=== PATIENT | male | born 1930 | race Caucasian/White ===

== ENCOUNTER → 2018-09-08 | Outpatient (CLI) | payer OTHER ==
[~2018-09-08] MED LIST: ALLOPURINOL 30300 M2 PO; ALLOPURINOL 30300 M3 PO; AMLODIPINE BESYL5 M1 PO; APAP650 PO; ASPIRIN325 PO; COZAAR 50 MG TA50 M2 PO; FISH OIL 1,001000 M2 PO; GLUCOSAMINE CH PO; GLUCOSAMINE HC500 MG PO; HYALURONIC ACI1 EACH PO; HYDROCHLOROTHIA25 M2 PO; MULTIVITAMINS PO; OMEGA-31000 MG PO; RED YEAST RICE600 M1 PO; TENORMIN25 MG PO; THERA-M CAPLET1 EACH PO; TRIAMTERENE-HC1 EAC1 PO; TRIAMTERENE-HC1 EAC2 PO; VITAMIN D35000 UNIT PO
== END ==
LOC: MRI 15:38
DX: S46.812A Strain of other muscles, fascia and tendons at shoulder and upper arm level, left arm, initial encounter (principal); M19.012 Primary osteoarthritis, left shoulder; X58.XXXA Exposure to other specified factors, initial encounter; Y93.89 Activity, other specified; Y92.89 Other specified places as the place of occurrence of the external cause; Y99.8 Other external cause status

== ENCOUNTER → 2019-05-30 | Outpatient (CLI) | payer OTHER ==
[2019-05-30 14:40] LABS: CREATININE 1.4 mg/dL (0.7-1.3)
== END ==
LOC: CAT 11:45 → LABMALL 13:48
PROVIDERS: Urology
DX: K76.0 Fatty (change of) liver, not elsewhere classified (principal); C61 Malignant neoplasm of prostate; M47.819 Spondylosis without myelopathy or radiculopathy, site unspecified; Z85.51 Personal history of malignant neoplasm of bladder; M41.80 Other forms of scoliosis, site unspecified

== ENCOUNTER → 2019-10-20 | Outpatient (CLI) | payer OTHER | LOC: LAB 08:27 → EDSTATUS 11:54 | PROVIDERS: ATTEND Anesthesiology | DX: Z01.812 Encounter for preprocedural laboratory examination (principal) ==

== ENCOUNTER → 2019-11-17 | Outpatient (CLI) | payer OTHER | LOC: LAB 11:00 | PROVIDERS: ATTEND Anesthesiology | DX: Z01.812 Encounter for preprocedural laboratory examination (principal); Z11.59 Encounter for screening for other viral diseases ==

== ENCOUNTER → 2020-01-15 | Outpatient (CLI) | payer OTHER | LOC: SJCVC 11:28 | PROVIDERS: ATTEND Internal Medicine Cardiovascular Disease | DX: I35.0 Nonrheumatic aortic (valve) stenosis (principal); R01.1 Cardiac murmur, unspecified; E78.00 Pure hypercholesterolemia, unspecified; I10 Essential (primary) hypertension; G45.9 Transient cerebral ischemic attack, unspecified; Z79.899 Other long term (current) drug therapy ==

== ENCOUNTER → 2020-03-20 | Outpatient (CLI) | payer OTHER | LOC: RAD 09:03 | PROVIDERS: ATTEND Family Medicine | DX: M25.461 Effusion, right knee (principal); M25.462 Effusion, left knee; M25.762 Osteophyte, left knee; M22.41 Chondromalacia patellae, right knee ==

== ENCOUNTER → 2020-03-27 | Outpatient (CLI) | payer OTHER | LOC: SJCVCIMAG 13:49 | PROVIDERS: ATTEND Internal Medicine Cardiovascular Disease | DX: I08.3 Combined rheumatic disorders of mitral, aortic and tricuspid valves (principal); I11.9 Hypertensive heart disease without heart failure; R01.1 Cardiac murmur, unspecified; E78.00 Pure hypercholesterolemia, unspecified; I65.23 Occlusion and stenosis of bilateral carotid arteries; Z79.899 Other long term (current) drug therapy ==

== ENCOUNTER 2021-02-26 10:10 | Inpatient (IN) | payer OTHER ==
[~2021-02-26] VITALS: Ht 175.3 cm; Wt 77.1 kg
[2021-02-26 10:10] VITALS: BP 149/78
--- NOTE | 2021-02-26 10:35 | EKG ---
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1930 Requested By: Natalie Leos Order Number: [id number] MD: Kumar Carrera Measurements Intervals [place] Rate: 132 P: 264 IN: 112 QRS: 9 QRSD: 89 T: 22 QT: 368 QTc: 546 Interpretive Statements Ectopic atrial tachycardia, unifocal Borderline T abnormalities, inferior leads Prolonged QT interval Compared to ECG 09/10/2014 16:32:15 T-wave abnormality now present Prolonged QT interval now present Sinus rhythm no longer present Electronically Signed On 02-26-2021 10:35:22 CDT by Kumar Carrera [email or web address] <ELECTRONICALLY SIGNED> By: Kumar Carrera MD, [facility] 02/26/21 1035 1015 1015 Kumar Carrera MD, FACC /EPI
[2021-02-26 10:46] LABS: ABSOLUTE NEUTROPHILS 4.6 thou/uL (1.4-8.2); BASOPHILS 0.7 % (0.0-2.0); EOSINOPHILS 0.9 % (0.0-3.0); HEMATOCRIT 33.5 % (42.0-52.0); HEMOGLOBIN 11.3 gm/dL (14.0-18.0); MCH 33.7 pg (26.0-34.0); MCHC 33.8 g/dL (28.0-37.0); MCV 99.7 fL (80.0-100.0); MONOCYTES 16.8 % (1.0-8.0); PLATELET COUNT 200 thou/uL (150-400); POLYS 64.6 % (36.0-66.0); RBC 3.36 mil/uL (4.50-6.00); RDW 13.7 % (10.5-14.5)
[2021-02-26 11:12] LABS: CALCIUM 8.9 mg/dL (8.5-10.1); POTASSIUM 4.2 mmol/L (3.5-5.1)
[2021-02-26 11:41] VITALS: BP 138/84
[2021-02-26 12:00] VITALS: BP 138/84
[2021-02-26 12:55] VITALS: BP 150/78
--- NOTE | 2021-02-26 13:39 | EKG ---
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1930 Requested By: Carlos Hogan Order Number: [id number] : Kumar Carrera Measurements Intervals [place] Rate: 130 P: 94 [place]: 78 QRS: -12 QRSD: 89 T: 35 QT: 375 QTc: 552 Interpretive Statements Sinus tachycardia Atrial premature complex Prolonged QT interval Compared to ECG 02/26/2021 10:15:53 Atrial premature complex(es) now present T-wave abnormality no longer present Electronically Signed On 02-26-2021 13:39:31 CDT by Kumar Carrera [email or web address] <ELECTRONICALLY SIGNED> By: Kumar Carrera MD, [facility] 02/26/21 1339 1027 1027 Kumar Carrera MD, [facility] /EPI
--- NOTE | 2021-02-26 14:08 | 2DMMODE ---
[facility] [place] [address] 2 D/M-MODE ECHOCARDIOGRAM Name: BLANK RUST FRANDY Room #: 217-P ADM IN M.R.#: [id number] Admission: 02/26/21 Attend Phys: Carlos Hogan MD Discharge: Date of : 34 Report #: [id number] THIS REPORT FOR: cc: FAM - Family physician unknown FAM - Family physician unknown Acosta Nassar MD [facility] ~ APPROVED REPORT Study performed: 02/26/2021 13:12:30 EXAM: Comprehensive 2D, Doppler, and color-flow Echocardiogram Patient Location: Bedside Room #: 217 Status: routine BSA: 1.93 HR: 63 bpm BP: 134/84 mmHg Rhythm: NSR Other Information Study Quality: Adequate Indications Afib, aortic stenosis. 2D Dimensions RVDd: 29.41 mm IVSd: 12.94 (7-11mm) LVOT Diam: 23.08 (18-24mm) LVDd: 43.86 mm PWd: 12.79 (7-11mm) Ascending Ao: 28.49 (22-36mm) LVDs: 33.17 (25-40mm) Left Atrium: 40.07 (27-40mm) Aortic Root: 40.42 mm Volumes Left Atrial Volume (Systole) Single Plane 4CH: 63.91 mL Single Plane 2CH: 95.72 mL LA ESV Index: 42.00 mL/m2 Aortic Valve AoV Peak Myron.: 2.92 m/s AO Peak Gr.: 34.21 mmHg LVOT Max P.61 mmHg AO Mean Gr.: 18.82 mmHg AO V2 Mean: 2.07 m/s LVOT Max V: 0.81 m/s [facility] [address] [place] [address] 2 D/M-MODE ECHOCARDIOGRAM Name: YOCASTABLANK FRANDY Room #: 217-[facility] IN [facility]#: [id number] Admission: 02/26/21 Attend Phys: Carlos Hogan MD Discharge: Date of : 32 Report #: [id number] AO V2 VTI: 77.45 cm MUKESH Vmax: 1.15 cm2 Mitral Valve E/A Ratio: 0.6 MV Decel. Time: 255.50 ms MV E Max Myron.: 0.99 m/s MV A Myron.: 1.57 m/s MV PHT: 74.09 ms IVRT: 92.27 ms Pulmonary Valve PV Peak Myron.: 0.90 m/s PV Peak Gr.: 3.21 mmHg Pulmonary Vein P Vein S: 0.43 m/s P Vein A: 0.31 m/s P Vein D: 0.18 m/s P Vein A Dur.: 152.2 msec P Vein S/D Ratio: 2.39 Tricuspid Valve TR Peak Myron.: 1.94 m/s RAP Estimate: 5.00 mmHg TR Peak Gr.: 15.05 mmHg PA Pressure: 20.00 mmHg Left Ventricle The left ventricle is normal size. There is normal LV segmental wall motion. Mild concentric left ventricular hypertrophy. Left ventricular systolic function is normal. LVEF is 50-55%. Mild diastolic dysfunction Right Ventricle The right ventricle is normal size. The right ventricular systolic function is normal. Atria Left atrium is moderately dilated. The right atrium size is normal. Aortic Valve Aortic valve is heavily calcified. Moderate stenosis, mild insufficiency Mild aortic regurgitation. Calculated aortic valve area is 1.2 cm2 (Peak gradient of 34 mmHg, mean pressure gradient of 19 mmHg). Mitral Valve Moderate mitral annular calcification. Mild mitral regurgitation. [facility] [address] [place] [address] 2 D/M-MODE ECHOCARDIOGRAM Name: RUSTBLANK [place] Room #: 217-[facility] IN ..#: [id number] Admission: 02/26/21 Attend Phys: Carlos Hogan MD Discharge: Date of : 34 Report #: [id number] evidence of mitral valve stenosis. Tricuspid Valve The tricuspid valve is normal in structure. Trace tricuspid regurgitation. Estimated PAP is 20mmHg. Pulmonic Valve The pulmonary valve is normal in structure. Trace pulmonic regurgitation. Great Vessels The aortic root is normal in size. The ascending aorta is normal in size. IVC is normal in size and collapses >50% with inspiration. Pericardium There is no pericardial effusion. <Conclusion> Left ventricular systolic function is normal. There is normal LV segmental wall motion. LVEF is 50-55%. Mild diastolic dysfunction Left atrium is moderately dilated. Aortic valve is heavily calcified. Moderate stenosis, mild insufficiency Calculated aortic valve area is 1.2 cm2 (Peak gradient of 34 mmHg, mean pressure gradient of 19 mmHg). Moderate mitral annular calcification. Mild mitral regurgitation. Trace tricuspid regurgitation. Estimated pulmonary artery pressure of 20mmHg. There is no pericardial effusion. <ELECTRONICALLY SIGNED> By: Acosta Nassar MD, FACC 02/26/21 140 140 06 Acosta Nassar MD, FACC /INF
[2021-02-26 19:35] VITALS: BP 134/66
--- NOTE | 2021-02-27 03:05 | NUR ---
PT IS ALERT AND OREINTED X4. LUNGS ARE CLEAR. COMPLAINS OF WEAKNESS BEDREST. VOIDS PER URINAL CLEAR YELLOW NOTED. BOWEL SOUNDS HYPOACTIVE ABDOMEN IS SOFT. WAS AT BEDSIDE AND FAMILY PICKED HER UP EARLIER. DENIES ANY CHEST PAIN OR PAIN IN GENERAL WHEN ASKED. CALL LIGHT WITHIN REACH IF NEEDS ASSISTANCE PER NURSING
[2021-02-27 04:43] VITALS: BP 138/90
[2021-02-27 05:18] LABS: HEMATOCRIT 30.8 % (42.0-52.0); HEMOGLOBIN 10.6 gm/dL (14.0-18.0); MCH 34.4 pg (26.0-34.0); MCHC 34.4 g/dL (28.0-37.0); RBC 3.08 mil/uL (4.50-6.00); WBC 6.5 thou/uL (4.0-11.0)
[2021-02-27 06:14] LABS: CALCIUM 8.6 mg/dL (8.5-10.1); POTASSIUM 4.2 mmol/L (3.5-5.1)
--- NOTE | 2021-02-27 07:18 | EKG ---
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1930 Requested By: Elizabeth Daly Order Number: [id number] MD: Kumar Carrera Measurements Intervals [place] Rate: 58 P: 62 ND: 181 QRS: 11 QRSD: 90 T: 39 QT: 487 QTc: 479 Interpretive Statements Sinus rhythm Borderline prolonged QT interval Compared to ECG 02/26/2021 10:27:47 Sinus tachycardia no longer present Atrial premature complex(es) no longer present Electronically Signed On 02-27-2021 7:18:00 CDT by Kumar Carrera [email or web address] <ELECTRONICALLY SIGNED> By: Kumar Carrera MD, [facility] 02/27/21717 9 9 Kumar Carrera MD, [facility] /EPI
[2021-02-27 07:23] VITALS: BP 133/60
[2021-02-27] MEDS ORDERED: XARELTO15 MG PO (08:28)
[2021-02-27] MEDS ORDERED: PACERONE 200 M200 M1 PO (08:28)
--- NOTE | 2021-02-27 11:03 | NUR ---
Assumed care of pt this AM. Pt is A&O x4, upset that was sent home this morning. Denies any chest pain. SA 50s-70s on the monitor after d/c'ing amiodarone gtt per cardio this AM. Pt accidentally d/c'ed IV. Pt anxious to get home today & keeps asking everyone when he will be leaving so he can get back home to . PT/OT consulted. Informed CM about situation w/ . Will continue to monitor pt needs.
[2021-02-27 11:35] VITALS: BP 120/48
[2021-02-27 13:08] VITALS: BP 120/48
--- NOTE | 2021-02-27 14:42 | NUR ---
ASSESSMENT: CM REVIEWED CHART AND SPOKE WITH PATIENT AT THE BEDSIDE. PT WAS ADMITTED WITH A FIB RVR. 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 PT REPORTS THAT THEY LIVE IN A HOUSE WITH 2 STEPS WITH A HANDRAIL TO ENTER AND NO STEPS HE HAS TO USE ONCE INSIDE. PT REPORTS THAT BOTH HE AND HIS USE A WALKER. PT REPORTS THAT HE STILL DRIVES AND GOES [employer]. PT REPORTS THAT HE IS INDEPENDENT WITH ADLS. IT WAS REPORTED BY BEDSIDE RN SOME CONCERNS ABOUT HOME ENVIRONMENT WAS HERE VISITING PT AND NEEDING QUITE A BIT ASSISTANCE. CM MET WITH PATIENT AND DISCUSSED HOME HEALTH AND THAT HOME HEALTH COULD BE ARRANGED FOR HIM WELL IF THEY CALL [facility] PCP IT COULD BE ARRANGED FOR HER. PT REPORTS THEY DO JUST FINE ON THEIR OWN. CM DISCUSSED THE BENEFITS OF HH AND HIGHLY ENCOURAGED WELL PT/OT EVALS BUT PT CONTINUES TO DECLINE. CM NOTIFIED ATTENDING. CM ALSO REACHED OUT TO PTS EX SON IN [place] [phone] WHO STATES HIS EX IS THE ONLY CHILD THEY HAVE THAT LIVES IN [place]OWN BUT THEY HAVE AN ESTRANGED RELATIONSHIP AND SHE DOES NOT TALK TO PATIENT OR HER MOTHER. SUMA REPORTS PT HAS TWO OTHER CHILDREN BOTH WHO LIVE OUT OF STATE AND HE IS THE CLOSEST TO FAMILY THE PATIENT HAS TO HELP THEM IF NEEDED. HE REPORTS HE CAN ASSIST WITH CHANGING LIGHT BULBS AND THINGS AROUND THE HOUSE BUT PT DRIVES HIMSELF TO THE STORE. HE STATES HE HAS ENCOURAGED THEM MULTIPLE TIMES TO MOVE SOMEWHERE WHERE THEY HAVE MORE HELP BUT HE REPORTS THEY WANT TO STAY HOME. PT APPEARS ALERT AND ORIENTED X4. CM ASKED PT IF CM CAN REACH OUT TO HIS SON OUT OF STATE. HE REPORT THAT HIS SON KNOWS HE IS HERE AND THAT IS NOT NECESSARY. CM DISCUSSED WITH SUMA THAT IF PTS NEEDS ASSISTANCE THEY CAN ALWAYS CALL HER PCP TO ARRANGE HOME HEALTH SERVICES. CM ALSO PROVIDED PATIENT WITH [employer] CONTACT INFO AND BROUCHURES THAT CAN HELP ASSIST THEM WITH TASKS AROUND THE HOUSE OR IN THE COMMUNITY. PT DECLINES ANY FURTHER NEEDS FROM CM. PT REPORTS HE DRIVES HIS TO OUTPT THERAPY 2X/WEEK. CM DISCUSSED WITH HH HE WOULD NOT HAVE TO GET OUT AND DRIVE BUT PT CONTINUES TO DECLINE STATING SHE DOES NOT WANT HH.
[2021-02-27 15:55] VITALS: BP 125/57
[2021-02-27 19:31] VITALS: BP 137/75
--- NOTE | 2021-02-28 02:58 | NUR ---
PT IS ALERT AND ORIENTED X4. LUNGS ARE CLEAR. ON ROOM AIR. UP TO BATHROOM BUT PT VERY WEAK GAIT BELT ON AND STILL PT IS DIFFICULT TO STAND AND REMAINS WEAK WITH TASK. ABDOMEN IS SOFT BOWEL SOUNDS ACTIVE. DENIES ANY PAIN ISSUES NOTED. TRYING TO SLEEP CALL LIGHT WITHIN REACH IF NEEDS ASISTANCE PER NURSING.
[2021-02-28 05:56] VITALS: BP 137/66
--- NOTE | 2021-02-28 07:50 | NUR ---
Assumed care of pt this AM. Pt IV fluids turned off overnight d/t loss of IV. Restarted IV in rt forearm & restarted fluids. Paged Dr. James office as pt going into AFib w/ HR up into 220s. Will continue to monitor.
[2021-02-28 08:01] VITALS: BP 143/81
[2021-02-28 10:50] LABS: CALCIUM 8.3 mg/dL (8.5-10.1); CREATININE 1.9 mg/dL (0.7-1.3); POTASSIUM 4.2 mmol/L (3.5-5.1)
[2021-02-28 11:24] VITALS: BP 118/64
[2021-02-28 11:54] VITALS: BP 120/48
[2021-02-28 14:12] VITALS: BP 120/48
== END 2021-02-28 14:47 | disposition home or self-care (01) | DRG 309 ==
LOC: ER 10:10 → 2N 11:32 → EROBS 11:32 → 2N 12:10
PROVIDERS: Emergency Medicine; ADMIT Hospitalist; ATTEND Hospitalist
DX: I48.91 Unspecified atrial fibrillation (principal); N17.9 Acute kidney failure, unspecified; I48.92 Unspecified atrial flutter; Z20.822 Contact with and (suspected) exposure to COVID-19; M10.9 Gout, unspecified; M19.90 Unspecified osteoarthritis, unspecified site; E78.5 Hyperlipidemia, unspecified; I65.29 Occlusion and stenosis of unspecified carotid artery; I12.9 Hypertensive chronic kidney disease with stage 1 through stage 4 chronic kidney disease, or unspecified chronic kidney disease; D64.9 Anemia, unspecified; I08.3 Combined rheumatic disorders of mitral, aortic and tricuspid valves; R53.81 Other malaise; N18.32 Chronic kidney disease, stage 3b; E55.9 Vitamin D deficiency, unspecified; G47.00 Insomnia, unspecified; Z85.46 Personal history of malignant neoplasm of prostate; Z90.49 Acquired absence of other specified parts of digestive tract; Z85.51 Personal history of malignant neoplasm of bladder; Z88.8 Allergy status to other drugs, medicaments and biological substances; Z86.73 Personal history of transient ischemic attack (TIA), and cerebral infarction without residual deficits; Z79.899 Other long term (current) drug therapy
CPT/HCPCS: 10797

== ENCOUNTER → 2021-03-06 | Outpatient (CLI) | payer OTHER ==
[~2021-03-06] MED LIST changes: +PACERONE 200 M200 M1 PO; +XARELTO15 MG PO
== END ==
LOC: SJCVC 11:13
PROVIDERS: ATTEND Internal Medicine Cardiovascular Disease
DX: I47.1 Supraventricular tachycardia (principal); R94.31 Abnormal electrocardiogram [ECG] [EKG]; I48.91 Unspecified atrial fibrillation; I10 Essential (primary) hypertension; E78.00 Pure hypercholesterolemia, unspecified; G45.9 Transient cerebral ischemic attack, unspecified; I35.0 Nonrheumatic aortic (valve) stenosis; D68.59 Other primary thrombophilia; Z79.899 Other long term (current) drug therapy; Z88.1 Allergy status to other antibiotic agents; Z86.73 Personal history of transient ischemic attack (TIA), and cerebral infarction without residual deficits

== ENCOUNTER → 2021-03-24 | Outpatient (CLI) | payer OTHER | LOC: SJCVC 09:30 | PROVIDERS: ATTEND Internal Medicine Cardiovascular Disease | DX: I48.91 Unspecified atrial fibrillation (principal); I35.0 Nonrheumatic aortic (valve) stenosis; I10 Essential (primary) hypertension; E78.00 Pure hypercholesterolemia, unspecified; G45.9 Transient cerebral ischemic attack, unspecified; R00.0 Tachycardia, unspecified; Z86.73 Personal history of transient ischemic attack (TIA), and cerebral infarction without residual deficits; Z88.8 Allergy status to other drugs, medicaments and biological substances; Z79.899 Other long term (current) drug therapy ==